=== PATIENT | female | born 1965 | race Two or more races ===

== ENCOUNTER → 2016-12-05 | Outpatient (CLI) | payer MEDICAID ==
[~2016-12-05] MED LIST: BLOOD PRESSURE MED; LISINOPRIL10 MG PO; NAPROSYN500 MG PO
--- NOTE | ~2016-12-05 | MY6 ---
[facility] A Service of [facility] & [facility] / [facility] RADIOLOGY TEXT RESULTS PATIENT: IVY FORTUNE LOCATION: [facility] : 61 UNIT #: [id number] AGE: [address]: GURPREET JOYA APRN SEX: F ORDER DR: [id number] [facility] [address] [place], [place] [address] [id number] O MR#: [id number] Acc #: [id number] NAME: IVY FORTUNE : 1965 SEX: F STUDY DATE/TIME: 12/05/2016 14:39 UNIT: [facility] ROOM: STUDY DESCRIPTION: MY Mammogram Dx Dig [facility] Attending Physician: Daniel Joya Aprn Referring Physician: Daniel Joya Aprn Ordering Physician: Daniel Joya Aprn Primary Care Physician: Brandin Smith M.D. MEDICAL IMAGING REPORT This report is preliminary unless electronic signature is present EXAM Diagnostic mammogram, 12/05. HISTORY 51 year old with no personal or family history of breast cancer. She reports a lesion on the right nipple for about 1 week that is painful. TECHNIQUE Digital CC and MLO views of both breasts were obtained in addition to a right unilateral view. Study was reviewed with an FDA-approved CAD device. COMPARISON STUDIES Comparison made with prior outside mammograms from 11/07/2015, 07/02/2014, 04/22/2013, and 04/08/2013. FINDINGS Breast parenchyma shows scattered fibroglandular densities. No suspicious microcalcifications in either breast. There are some partially obscured nodules in the right breast that are largely stable and have previously been shown to represent cysts. Ultrasound was performed of the right nipple as well as about the 12 o'clock axis of the right breast. Ultrasound demonstrates 3 benign cysts. Some of these were seen on prior outside ultrasound. Ultrasound also shows a solid-appearing lesion involving the nipple which appears at least partially within the dermis. This has the appearance of a benign sebaceous cyst. This could be surgically drained and/or excised. It could potentially be treated with antibiotics if indicated to assess for any improvement. Findings and recommendations were discussed with the patient at the time of her examination today via an insurance follow up specialist. IMPRESSION STS. [facility] A Service of [facility] RADIOLOGY TEXT RESULTS PATIENT: IVY FORTUNE LOCATION: [facility] : 61 UNIT #: [id number] AGE: [address]: GURPREET JOYA APRN SEX: F ORDER DR: 1. Benign bilateral mammogram with a targeted right ultrasound showing multiple cysts. 2. Lesion involving the nipple may represent a benign lesion such as a sebaceous cyst. This could potentially be surgically excised or drained. This could also potentially be treated with a course of antibiotics to assess if it improves or not. Clinical followup of this lesion is recommended. Patients over the age of 40 are entered into a reminder system with target due date for the next mammogram. A result letter will also be sent to the patient. BIRADS: 2 Benign finding. Dictated by... Neo Jansen Jr., M.D. THIS IS AN ELECTRONICALLY VERIFIED REPORT Neo Jansen Jr., M.D. at 12/06/2016 8:46 PM JIMENEZ/flaco TD: 12/05/2016 16:37 JOB #: [id number] MEDICAL IMAGING REPORT Page 1 of 1 COPY
--- NOTE | ~2016-12-05 | US24 ---
[facility] A Service of [facility] & [facility] RADIOLOGY TEXT RESULTS PATIENT: IVY FORTUNE LOCATION: [facility] : 61 UNIT #: [id number] AGE: [address]: GURPREET JOYA APRN SEX: F ORDER DR: [id number] [facility] [address] [place] [address] [place], [place] [address] [id number] O MR#: [id number] Acc #: [id number] NAME: IVY FORTUNE : 1965 SEX: F STUDY DATE/TIME: 12/05/2016 14:58 UNIT: [facility] ROOM: STUDY DESCRIPTION: US Breast Unilateral Attending Physician: Daniel Joya Aprn Referring Physician: Daniel Joya Aprn Ordering Physician: Daniel Joya Aprn Primary Care Physician: Brandin Smith M.D. MEDICAL IMAGING REPORT This report is preliminary unless electronic signature is present EXAM Right breast ultrasound, 12/05. HISTORY Lesion on the nipple for about 1 week which is painful. FINDINGS For a full report, please see the mammogram report dated 01/04/2017. Patients over the age of 40 are entered into a reminder system with target due date for the next mammogram. A result letter will also be sent to the patient. BIRADS: 2 Benign finding. Dictated by... Neo Jansen Jr., M.D. THIS IS AN ELECTRONICALLY VERIFIED REPORT Neo Jansen Jr., M.D. at 12/06/2016 8:47 PM JIMENEZ/flaco TD: 12/05/2016 16:47 JOB #: [id number] MEDICAL IMAGING REPORT Page 1 of 1 COPY
== END | disposition home or self-care (01) ==
LOC: CMAM 14:08
DX: N64.89 Other specified disorders of breast (principal); N60.11 Diffuse cystic mastopathy of right breast
CPT/HCPCS: 76641; G0204